=== PATIENT | female | born 1995 | race African-American/Black ===

== ENCOUNTER 2019-01-07 01:22 | Emergency (ER) | payer MEDICAID ==
[~2019-01-07] VITALS: Ht 162.6 cm; Wt 72.6 kg
[~2019-01-07 01:22] MED LIST: ALBUTEROL SULF8.5 GM INH
[2019-01-07 01:37] VITALS: BP 115/64
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
[2019-01-07] MEDS ORDERED: Methocarbamol 750mg tab ORAL ONE (01:45)
[2019-01-07] MEDS ORDERED: Ketorolac 60mg Inj IM ONE (01:45)
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
--- NOTE | 2019-01-07 02:12 | NUR ---
ED Nurse Note: Meds given as ordered.
[2019-01-07] MEDS ORDERED: IBUPROFEN600 MG ORAL (02:18)
[2019-01-07] MEDS ORDERED: ROBAXIN-750750 MG PO (02:18)
[2019-01-07 02:29] VITALS: BP 112/61
--- NOTE | 2019-01-07 02:29 | NUR ---
ER DISCHARGE NOTE: Patient is cleared to be discharged per Dr. Parisi. Pt is A/O x 4 on room air with stable vital signs. Pt was given D/C and prescription instructions and was able to verbalize understanding. Pt ID band removed. Pt is able to ambulate with steady gait and took all belongings. Accompanied by her Mom.
== END 2019-01-07 02:29 | disposition home or self-care (01) ==
LOC: EDBD 01:22 → EMR 01:34
DX: R51 Headache (principal); V43.62XA Car passenger injured in collision with other type car in traffic accident, initial encounter; Y92.414 Local residential or business street as the place of occurrence of the external cause; J45.909 Unspecified asthma, uncomplicated
CPT/HCPCS: 96372; 99283